=== PATIENT | male | born 1960 | race Native Hawaiian/Other Pacific Islander ===

== ENCOUNTER 2017-03-30 10:49 | Day surgery (SDC) | payer OTHER ==
[~2017-03-30 10:49] MED LIST: ASA LOW DOSE81 MG OR; CELEXA20 MG OR; CELEXA40 MG PO; CYCL10TA35 PO; GLUCOPHAGE1000 MG PO; HUMALOG100 MG/ML SC; HYDR-2748 PO; INSUINJ47 SC; LEVO0.0218 PO; LEVO0.0529 PO; LOSA50TA PO; MELOXICAM15 MG PO; METF500T PO; METFORMIN PO; PANT40TA PO; SIMV20TA2 PO; SIMV40TA57; ZANTAC 75 PO
[2017-03-30 11:31] LABS: PLATELET COUNT 215 K/uL (142-355)
[2017-03-30 11:55] LABS: POTASSIUM 4.2 mmol/L (3.6-5.2)
== END 2017-03-30 14:05 | disposition home or self-care (01) ==
LOC: OR 10:49
PROVIDERS: Internal Medicine Gastroenterology
PROC: 0DBN8ZZ Excision of Sigmoid Colon, Via Natural or Artificial Opening Endoscopic (ICD-10-PCS; principal; 2017-03-30)
PROC: 0DBE8ZZ Excision of Large Intestine, Via Natural or Artificial Opening Endoscopic (ICD-10-PCS; 2017-03-30)
DX: K57.30 Diverticulosis of large intestine without perforation or abscess without bleeding (principal); K63.5 Polyp of colon; K64.8 Other hemorrhoids; R19.4 Change in bowel habit; R19.7 Diarrhea, unspecified; R10.30 Lower abdominal pain, unspecified
CPT/HCPCS: 80053; 85027; J2001; J2250; J2405; J2704; J3010

== ENCOUNTER 2020-05-06 15:00 | Emergency (ER) | payer OTHER ==
[~2020-05-06] VITALS: Ht 177.8 cm; Wt 112.5 kg
[2020-05-06] MEDS ORDERED: LEXAPRO10 MG PO (15:20)
[2020-05-06] MEDS ORDERED: TIZA4TAB5 PO (15:20)
[2020-05-06] MEDS ORDERED: BUPR8SUB2 PO (15:20)
[2020-05-06] MEDS ORDERED: ROSU10TA PO (15:21)
[2020-05-06] MEDS ORDERED: INDERAL LA60 MG PO (15:22)
[2020-05-06 16:52] LABS: PLATELET COUNT 252 K/uL (142-355)
[2020-05-06 16:53] LABS: SODIUM 134 mmol/L (136-145)
[2020-05-06 17:02] LABS: PARTIAL THROMBOPLASTIN TIME 22.3 SECONDS (24.5-33.6)
[2020-05-06 23:10] VITALS: BP 137/76; TEMP 98
== END 2020-05-06 23:10 | disposition home or self-care (01) ==
LOC: ED 15:00
PROVIDERS: Family Medicine
DX: R04.2 Hemoptysis (principal); K92.0 Hematemesis; K92.2 Gastrointestinal hemorrhage, unspecified; E11.65 Type 2 diabetes mellitus with hyperglycemia; Z79.4 Long term (current) use of insulin
CPT/HCPCS: 36415; 80053; 82550; 82962; 84484; 85027; 85610; 85730; 93005; 96360; 96361; 96365; 96375; 96376; 99284; J1815; J2175; J2405; J3490

== ENCOUNTER 2021-05-06 09:54 | Day surgery (SDC) | payer OTHER ==
[2021-05-04 13:47] LABS: PLATELET COUNT 205 K/uL (142-355)
[2021-05-04 14:01] LABS: POTASSIUM 4.8 mmol/L (3.6-5.2)
[~2021-05-06] VITALS: Ht 30.5 cm; Wt 0.5 kg
[~2021-05-06 09:54] MED LIST changes: +BUPR8SUB2 PO; +INDERAL LA60 MG PO; +LEXAPRO10 MG PO; +ROSU10TA PO; +TIZA4TAB5 PO
== END 2021-05-06 13:30 | disposition home or self-care (01) ==
LOC: OR 09:54
PROVIDERS: ATTEND Internal Medicine Gastroenterology
PROC: 0DH63UZ Insertion of Feeding Device into Stomach, Percutaneous Approach (ICD-10-PCS; principal; 2021-05-06)
DX: K29.60 Other gastritis without bleeding (principal); K94.23 Gastrostomy malfunction; R13.19 Other dysphagia; Z20.822 Contact with and (suspected) exposure to COVID-19; Y83.8 Other surgical procedures as the cause of abnormal reaction of the patient, or of later complication, without mention of misadventure at the time of the procedure
CPT/HCPCS: 80053; 85027; 87635; J1170; J1642; J2704; J7120; U0003